=== PATIENT | female | born 1990 | race Caucasian/White ===

== ENCOUNTER 2016-08-30 21:40 | Emergency (ER) | payer MEDICAID ==
[~2016-08-30] VITALS: Ht 157.5 cm; Wt 63.3 kg
[~2016-08-30 21:40] MED LIST: ABCC1C PO; PREN1TAB49
[2016-08-30 21:57] VITALS: Ht 157.5 cm; Wt 63.3 kg
[2016-08-31] MEDS ORDERED: ONDANSETRON (ODT) 4 MG TAB ODT STA (02:09)
--- NOTE | 2016-08-31 02:58 | RADRPT ---
PROCEDURE: CT head, without contrast. CLINICAL INDICATION: Headache and weakness. TECHNIQUE: Noncontrast CT examination of the head, with axial, sagittal and coronal reformatted im ages. Automated dose exposure control was employed. CTDI: 38.54 mGy and DLP: 634.23 mGy-cm. COMPARISON: None. FINDINGS: No acute hemorrhage. Subarachnoid spaces are substantially preserved and symmetric. Ventricles ar e unremarkable. No mass effect. De La Cruz-white matter distinction is preserved without evident decreased attenuation t o suggest acute or recent infarct. Sinuses and osseous structures are unremarkable. IMPRESSION: No acute process in the head. RPTAT: UU Physician Michael Date Time Electronically viewed and signed by Physician Michael on 08/31/2016 02:57 RS/
[2016-08-31 03:08] LABS: ADD SCAN DIFF NO
[2016-08-31 03:34] LABS: BASOPHIL # 0.1 10^3/ul (0.0-0.1); BASOPHILS % 0.8 % (0.0-2.0); EOSINOPHILS # 1.3 10^3/ul (0.0-0.5); EOSINOPHILS % 11.9 % (0.0-7.0); HEMATOCRIT 38.5 % (37.0-47.0); HEMOGLOBIN 13.2 g/dl (12.0-16.0); LYMPHOCYTES # 3.5 10^3/ul (0.8-2.9); MEAN CORPUSCULAR HGB CONC 34.3 g/dl (32.0-37.0); MEAN CORPUSCULAR VOLUME 90.4 fl (82.0-101.0); MEAN PLATELET VOLUME 9.6 fl (7.4-10.4); MONOCYTE # 0.6 10^3/ul (0.3-0.9); MONOCYTES % 5.5 % (0.0-11.0); NEUTROPHIL # 5.2 10^3/ul (1.6-7.5); NEUTROPHILS % 48.4 % (39.0-77.0); PLATELET COUNT 322 10^3/UL (140-415); RED BLOOD COUNT 4.26 10^6/ul (4.20-5.40); RED CELL DISTRIBUTION WIDTH 11.9 % (11.5-14.5); WHITE BLOOD COUNT 10.7 10^3/ul (4.8-10.8)
[2016-08-31 03:37] LABS: ALBUMIN 4.2 g/dl (3.3-4.9)
[2016-08-31 03:38] LABS: POTASSIUM 4.5 mmol/L (3.5-5.1)
[2016-08-31 03:40] LABS: BILIRUBIN,INDIRECT 0.1 mg/dl (0-1.1); BILIRUBIN,TOTAL 0.1 mg/dl (0.2-1.3); CREATININE 0.68 mg/dl (0.44-1.00)
[2016-08-31 03:41] LABS: ALBUMIN/GLOBULIN RATIO 1.07; CALCIUM 9.7 mg/dl (8.4-10.2); TOTAL PROTEIN 8.1 g/dl (6.1-8.1)
[2016-08-31] MEDS ORDERED: ACET500C5 PO (04:07)
[2016-08-31 04:18] VITALS: BP 121/83; PULSE 81; RESP 16
--- NOTE | 2016-08-31 20:42 | ERD ---
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 She complains of headache, dizziness, numbness to her left side of face and weakness. She states that this has been going on for 2 weeks. She denies trauma or triggering factor. She denies fever or chills. She denies bowel or bladder incontinence. She denies difficulty walking, speaking. She denies blurry vision. She also states a pressure sensation on the left side of her head. She denies abdominal pain, nausea, vomiting, diarrhea, constipation. She denies chest pain, shortness of breath or difficulty breathing. She has no other complaints. ROS All systems reviewed and are negative except as per history of present illness. Medications Home Meds Active Scripts Acetaminophen* (Tylophen*) 500 Mg Capsule, 1 CAP PO Q6H Y for PAIN AND OR ELEVATED TEMP, #20 CAP Prov:ALEXIA QUINTERO PA-C 08/31/16 Bnvmxqkrstkxh-Zkwivgqggs-Kwkxoopm-Codeine* (Fioricet w/Codeine*) [id number] -30MG Cap, 1 CAP PO Q4H Y for PAIN LEVEL 1-5, #20 CAP Prov:ZOE FIGUEROA PA-C 04/12/15 Reported Medications Vits W-Ca,Fe,Fa(<1MG) () 1 Tab Tablet 07/01/11 [None] No Conflict Check 02/01/10 Allergies Allergies: Coded Allergies: No Known Drug Allergy (Verified Allergy, Unknown, 02/01/10) PMhx/Soc History of Surgery: Yes (CHOLECYSTECTOMY) Anesthesia Reaction: No Hx Neurological Disorder: No Hx Respiratory Disorders: No Hx Cardiac Disorders: No Hx Psychiatric Problems: No Hx Miscellaneous Medical Probl: No Hx Alcohol Use: No Hx Substance Use: No Hx Tobacco Use: No Smoking Status: Never smoker FmHx Family History: No coronary disease, No diabetes, No other Physical Exam Vitals Vital Signs Date Time Temp Pulse Resp B/P Pulse Ox O2 Delivery O2 Flow Rate FiO2 08/31/16 04:18 81 16 121/83 98 Room Air 08/30/16 21:57 98.5 82 20 124/64 100 Physical Exam GENERAL: Well-developed, well-nourished female. Appears in no acute distress. HEAD: Normocephalic, atraumatic. EYES: Pupils are equally reactive bilaterally. EOMs grossly intact. No conjunctival erythema. ENT: Moist mucous membranes. No uvula deviation. No kissing tonsils. No exudates. NECK: Supple. No lymphadenopathy or thyromegaly. No meningismus. negative kernig. negative brudinski. LUNG: Clear to auscultation bilaterally. No rhonchi, wheezing, rales or coarse breath sounds. HEART: Regular rate and rhythm. No murmurs, rubs or gallops. ABDOMEN: No scars, ecchymosis or rashes noted. Soft, nontender, and nondistended. Positive bowel sounds in all four quadrants. No rebound tenderness , no guarding. (-) McBurneys point tenderness. No CVA tenderness. BACK: No midline tenderness. Extremities: Equal pulses bilaterally. No peripheral clubbing, cyanosis or edema. No unilateral leg swelling. NEUROLOGIC: Alert and oriented. Moving all four extremities. 5/5 strength in all extremities. Normal speech. Steady gait. Cranial nerves II through XII intact. Reflexes intact. SKIN: Normal color. Warm and dry. No rashes or lesions. Capillary refill < 2 seconds Result Diagram: 08/31/165 08/31/16 0255 Results 24 hrs Laboratory Tests Test 08/31/16 02:55 Alanine Aminotransferase (ALT/SGPT) 24IU/L Albumin 4.2g/dl Albumin/Globulin Ratio 1.07 Alkaline Phosphatase 76IU/L Anion Gap 18 Aspartate Amino Transf (AST/SGOT) 23IU/L Basophils # 0.110^3/ul Basophils % 0.8% Blood Urea Nitrogen 23mg/dl Calcium Level 9.7mg/dl Carbon Dioxide Level 27mmol/L Chloride Level 103mmol/L Creatinine 0.68mg/dl Direct Bilirubin 0.00mg/dl Eosinophils # 1.310^3/ul Eosinophils % 11.9% Globulin 3.90g/dl Glucose Level 100mg/dl Hematocrit 38.5% Hemoglobin 13.2g/dl Indirect Bilirubin 0.1mg/dl Lipase 233U/L Lymphocytes # 3.510^3/ul Lymphocytes % 33.0% Mean Corpuscular Hemoglobin 31.0pg Mean Corpuscular Hemoglobin Concent 34.3g/dl Mean Corpuscular Volume 90.4fl Mean Platelet Volume 9.6fl Monocytes # 0.610^3/ul Monocytes % 5.5% Neutrophils # 5.210^3/ul Neutrophils % 48.4% Nucleated Red Blood Cells # 0.010^3/ul Nucleated Red Blood Cells % 0.0/100WBC Platelet Count 18935^3/UL Potassium Level 4.5mmol/L Red Blood Count 4.2610^6/ul Red Cell Distribution Width 11.9% Sodium Level 143mmol/L Total Bilirubin 0.1mg/dl Total Protein 8.1g/dl White Blood Count 10.710^3/ul Current Medications Medications (Trade) Dose Ordered Sig/Urszula Route PRN Reason Start Time Stop Time Status Last Admin Dose Admin Ondansetron HCl (Zofran Odt) 4 mg ONCE STAT ODT 08/31/16 02:09 08/31/16 02:11 DC 08/31/16 02:40 Procedures/MDM ER COURSE: I kept the patient and/or family informed of laboratory and diagnostic imaging results throughout the emergency room course. EKG, MONITORS, & DIAGNOSTIC IMAGING: [place] [address] Radiology Main Line: [phone] DIAGNOSTIC IMAGING REPORT Patient: TANIKA DIAZ : 1990 Age: 26 Sex: F MR #: [id number] DOS: 08/31/16 0209 Ordering MD: ALEXIA QUINTERO PA-C Location: [facility] Room/Bed: PROCEDURE: CT head, without contrast. CLINICAL INDICATION: Headache and weakness. TECHNIQUE: Noncontrast CT examination of the head, with axial, sagittal and coronal reformatted images. Automated dose exposure control was employed. CTDI: 38.54 mGy and DLP: 634.23 mGy-cm. COMPARISON: None. FINDINGS: No acute hemorrhage. Subarachnoid spaces are substantially preserved and symmetric. Ventricles are unremarkable. No mass effect. De La Cruz-white matter distinction is preserved without evident decreased attenuation to suggest acute or recent infarct. Sinuses and osseous structures are unremarkable. IMPRESSION: No acute process in the head. RPTAT: UU Physician Michael Date Time Electronically viewed and signed by Physician Michael on 08/31/2016 02:57 RS/ CC: ALEXIA QUINTERO PA-C LAB INTERPRETATION: CBC showed no evidence of systemic infection or severe anemia. CMP showed no evidence of electrolyte abnormalities, severe acidosis, alkalosis, renal failure , or liver disease. Lipase showed no evidence of acute pancreatitis. Urine test was negative. MEDICAL DECISION MAKING: This is a 26 year old female who presents with multiple complaints. Vital signs were reviewed. Patient is afebrile. Patient is not hypoxic. Patient is not toxic or ill-appearing. Patient has headache and numbness of the face of unknown etiology. Her CT scan as read by radiologist was unremarkable. Her blood work was within normal limits. Low suspicion for intracranial hemorrhage , meningitis, intracranial mass, concussion, temporal arteritis, stroke, elevated intracranial pressure, seizure. Low suspicion for cauda equine syndrome, spinal epidural hematoma, spinal epidural abscess, osteomyelitis, fracture, aortic dissection, AAA, pyelonephritis, nephrolithiasis, septic stone, obstructed stone. DISCHARGE: At this time, patient is stable for discharge and outpatient management with no new complaints during the ER course. Patient was sent home with Tylenol and copy of reports was given to patient to follow-up with her primary care.. Patient will be discharged home with instructions to recheck for new or worsening symptoms such as fever, nausea, weakness, LOC and to follow up with primary care in the next 1-2 days. Patient was advised to return to the ER for any new or worsening symptoms. Plan was discussed and patient and/or family understands and agrees. Home instructions were given. Departure Diagnosis: Primary Impression: Headache Headache type: unspecified Headache chronicity pattern: unspecified pattern Intractability: not intractable Qualified Code: R51 - Nonintractable headache, unspecified chronicity pattern, unspecified headache type Condition: Stable Patient Instructions: Self-Care for Headaches Referrals: [facility] Usted se carlson hecho un examen mdico de control que le indica que no est en shelia condicin que requiera tratamiento urgente en el Departamento de Emergencia. Un estudio ms profundo y el tratamiento de melton condicin pueden esperar sin ningn riesgo hasta que usted sea atendida/o en el consultorio de melton mdico o shelia cl kevin. Es responsabilidad suya arreglar shelia tana para el seguimiento del theresa. MANEJO DE CONDICIONES NO URGENTES EN EL FUTURO 1) Si usted tiene un mdico de atencin primaria: Usted debera llamar a melton mdico de atencin primaria antes de venir al departamento de emergencia. Despus de las horas de consultorio, melton doctor o melton asociado/a est disponible por telfono. El mdico o enfermero de edmond en el servicio telefnico puede asesorarle por kathirn medio para atender el problema, o theresa contrario se puede programar shelia tana. 2) Si usted no tiene un mdico de atencin primaria: Llame al mdico o clnica de referencia que aparece abajo isaias las horas de consultorio para hacer shelia tana para que le vean. CLINICAS: [facility] [phone] [address] [facility] [phone] [address] [facility] [phone] [address] [facility] [place] [id number] [phone] [facility] [place] [id number] [phone] [facility]. [phone] [address] Additional Instructions: Llame al doctor MAANA y cayetano shelia TANA PARA DENTRO DE 1-2 BRINK.Dgale a la secretaria que nosotros le instruimos hacer esta tana.Avise o llame si melton condicin se empeora antes de la tana. Regresa aqui si peor o no mejor. ALEXIA QUINTERO PA-C Aug 31, 2016 20:41
== END 2016-08-31 04:19 | disposition home or self-care (01) ==
LOC: FTE 21:40
DX: R51 Headache (principal)
CPT/HCPCS: 70450; 80053; 83690; 85025; Z7502; Z7610

== ENCOUNTER 2016-11-28 19:50 | Emergency (ER) | payer MEDICAID ==
[~2016-11-28] VITALS: Ht 160 cm; Wt 63.0 kg
[~2016-11-28 19:50] MED LIST changes: +ACET500C5 PO
[2016-11-28 19:54] VITALS: Ht 160 cm; Wt 63.0 kg
[2016-11-28 20:17] VITALS: PULSE 95
[2016-11-28] MEDS ORDERED: AZIT250T94 PO (20:19)
[2016-11-28] MEDS ORDERED: IBUP-1542 PO (20:19)
[2016-11-28] MEDS ORDERED: CETI10CA PO (20:19)
[2016-11-28] MEDS ORDERED: ALBU8.5H3 INH (20:19)
[2016-11-28] MEDS ORDERED: GUAI120S26 PO (20:19)
--- NOTE | 2016-11-28 20:42 | ERD ---
ER Documentation Chief Complaint Date/Time DATE: 11/28/16 TIME: 20:40 Chief Complaint BODY ACHES, FEVER, COUGH SINCE YESTERDAY MORNING. HPI 26-year-old female presents here in emergency department for complaints of cough , fever, body, sore throat started yesterday. Patient has been having dry cough , does not any phlegm or blood. Patient is on and off wheezing at times. Patient does not have any sick contacts. Patient did not take any medications of the symptoms. ROS All systems reviewed and are negative except as per history of present illness. Medications Home Meds Active Scripts Azithromycin* (Zithromax*) 250 Mg Tablet, 250 MG PO .ZPACK DIRECTED, #6 TAB TAKE 500 MG (2 TABS) THE FIRST DAY THEN 250 MG (1 TAB) DAYS 2-5 Prov:AMA DIAZ NP 11/28/16 Albuterol Sulfate* (Proair HFA*) 8.5 Gm Hfa.aer.ad, 2 PUFF INH Q4H Y for WHEEZING AND SOB, #1 INHALER Prov:AMA DIAZ NP 11/28/16 Ibuprofen* (Motrin*) 600 Mg Tab, 600 MG PO Q6H Y for PAIN AND OR ELEVATED TEMP, #30 TAB Prov:AMA DIAZ NP 11/28/16 Cetirizine Hcl* (Zyrtec*) 10 Mg Capsule, 10 MG PO DAILY, #30 TAB.CHEW Prov:AMA DIAZ NP 11/28/16 Onmstzgmlpw-H-Rkwgigbksi Hb* (Guaifenesin* DM Syrup) 120 Ml Syrup, 10 ML PO Q4H Y for COUGH, #120 ML Prov:AMA DIAZ NP 11/28/16 Acetaminophen* (Tylophen*) 500 Mg Capsule, 1 CAP PO Q6H Y for PAIN AND OR ELEVATED TEMP, #20 CAP Prov:ALEXIA QUINTERO PA-C 08/31/16 Oqkefwkojyxue-Rwxwbfyuui-Thqrkifs-Codeine* (Fioricet w/Codeine*) [id number] -30MG Cap, 1 CAP PO Q4H Y for PAIN LEVEL 1-5, #20 CAP Prov:ZOE FIGUEROA PA-C 04/12/15 Reported Medications Vits W-Ca,Fe,Fa(<1MG) () 1 Tab Tablet 07/01/11 [None] No Conflict Check 02/01/10 Allergies Allergies: Coded Allergies: No Known Drug Allergy (Verified Allergy, Unknown, 11/28/16) PMhx/Soc History of Surgery: Yes (CHOLECYSTECTOMY) Anesthesia Reaction: No Hx Neurological Disorder: No Hx Respiratory Disorders: No Hx Cardiac Disorders: No Hx Psychiatric Problems: No Hx Miscellaneous Medical Probl: No Hx Alcohol Use: No Hx Substance Use: No Hx Tobacco Use: No FmHx Family History: No coronary disease, No diabetes, No other Physical Exam Vitals Vital Signs Date Time Temp Pulse Resp B/P Pulse Ox O2 Delivery O2 Flow Rate FiO2 11/28/16 20:17 95 11/28/16 19:54 99.7 108 16 114/70 98 Physical Exam GENERAL: The patient is well developed and appropriate for usual state of health, in no apparent distress. HEENT: Atraumatic. Ears: Normal tympanic membrane, no erythema or bulging. No ear canal swelling. No ear discharge. Nose: Erythematous nasal turbinates with clear nasal discharge. Throat: oropharynx erythematous with postnasal drip. No tonsillar swelling or tonsillar exudates. No lymphadenopathy. CHEST: Clear to auscultation bilaterally. There are no rales, wheezes or rhonchi. HEART: Regular rate and rhythm. No murmurs, clicks, rubs or gallops. No S3 or S4. ABDOMEN: Soft, nontender and nondistended. Good bowel sounds. No rebound or guarding. No gross peritonitis. No gross organomegaly or masses. No Aguirre sign or McBurney point tenderness. BACK: No midline or flank tenderness. EXTREMITIES: Equal pulses bilaterally. There is no peripheral clubbing, cyanosis or edema. No focal swelling or erythema. Full range of motion. Grossly neurovascularly intact. NEURO: Alert and oriented. Cranial nerves 2-12 intact. Motor strength in all 4 extremities with 5/5 strength. Sensation grossly intact. Normal speech and gait. SKIN: There is no apparent rash or petechia. The skin is warm and dry. HEMATOLOGIC AND LYMPHATIC: There is no evidence of excessive bruising or lymphedema. No gross cervical, axillary, or inguinal lymphadenopathy. Procedures/MDM Medical Decision Making: Patient symptoms are most likely consistent with acute bronchitis, which possibly atypical infection. There is low suspicion for Pneumonia at this time since patients lungs sounds are clear, patient O2 saturation is normal and patient doesnt show any respiratory distress. Radiology exam is not indicated at this time. There is low suspicion for other cardiopulmonary emergencies at this time such as CHF, Pulmonary Embolism, Pneumothorax, or any other cardiopulmonary emergencies at this time. There is low suspicion for sepsis. Patient appears well and is hemodynamically stable. Patient's fever is controlled. Disposition: Home. Condition: Stable Prescriptions: Azithromycin, albuterol, Zyrtec, guaifenesin DM ibuprofen Instructions: Patient is advised to take medications as prescribed. Patient is advised to rest. Patient advised to increase fluid intake, do humidifier at home and if possible, do salt water gargles. Patient is advised that if symptoms are worse, shortness of breath, uncontrolled fever, stridor, vomiting, worst signs and symptoms to return to emergency department immediately. Otherwise, patient is advised to follow up with primary doctor in 5-7 days. Departure Diagnosis: Primary Impression: Acute bronchitis Bronchitis organism: unspecified organism Qualified Code: J20.9 - Acute bronchitis, unspecified organism Condition: Stable Patient Instructions: Bronchitis, Antiobiotic Treatment (Adult) AMA DIAZ NP November 28, 2016 20:42
== END 2016-11-28 20:22 | disposition home or self-care (01) ==
LOC: E/R 19:50
DX: J20.9 Acute bronchitis, unspecified (principal)
CPT/HCPCS: 99284

== ENCOUNTER → 2018-10-08 | Emergency (ER) | payer MEDICAID ==
[~2018-10-08] VITALS: Ht 157.5 cm; Wt 65.0 kg
[~2018-10-08] MED LIST changes: +ALBU8.5H8 INH; +AZIT250T PO; +BUTA1CAP38 PO; +CETI10CA PO; +GUAI120S26 PO; +IBUP-1542 PO; +KETOROLAC 30 MG INJ IM STA; +MAG-19 PO
[2018-10-08 19:56] VITALS: Ht 157.5 cm; Wt 65.0 kg
--- NOTE | 2018-10-08 22:03 | ERD ---
ER Documentation Chief Complaint Chief Complaint HEADACHE X2DAYS, NO N/V, NO DIZZINESS, NO FEVER HPI 28-year-old female presents for headache times 2 days. She states that the headaches in the posterior side of her head, rated 10 out of 10, described as sharp, nonradiating. She tried Tylenol at home without relief. She also took Advil 400 mg With only mild relief. Denies nausea vomiting. She denies fevers or chills. Denies chest pain or shortness of breath. No significant past medical history. ROS All systems reviewed and are negative except as per history of present illness. Medications Home Meds Active Scripts Upmkksgevg-Cyzlhvoipcriw-Pkrennzp* (Fioricet*) 50-300-40 Mg Capsule, 1 CAP PO Q4H PRN for HEADACHE, #30 CAP Prov:TL CHAMBERS 10/08/18 Ibuprofen* (Motrin*) 600 Mg Tab, 600 MG PO Q6H PRN for PAIN AND OR ELEVATED TEMP, #30 TAB Prov:TL CHAMBERS DO 10/08/18 Magaldrate/Simethicone* (Mylanta*) 355 Ml Susp, 30 ML PO QID PRN for GASTROINTESTINAL UPSET, #1 BOTTLE Prov:TL CHAMBERS 08/09/18 Azithromycin* (Zithromax*) 250 Mg Tablet, 250 MG PO .ZPACK DIRECTED, #6 TAB TAKE 500 MG (2 TABS) THE FIRST DAY THEN 250 MG (1 TAB) DAYS 2-5 Prov:AMA DIAZ NP 11/28/16 Albuterol Sulfate* (Proair HFA*) 8.5 Gm Hfa.aer.ad, 2 PUFF INH Q4H PRN for WHEEZING AND SOB, #1 INHALER Prov:AMA DIAZ NP 11/28/16 Ibuprofen* (Motrin*) 600 Mg Tab, 600 MG PO Q6H PRN for PAIN AND OR ELEVATED TEMP, #30 TAB Prov:AMA DIAZ NP 11/28/16 Cetirizine Hcl* (Zyrtec*) 10 Mg Capsule, 10 MG PO DAILY, #30 TAB.CHEW Prov:AMA DIAZ NP 11/28/16 Mavqevpraun-K-Nffibqgibu Hb* (Guaifenesin* DM Syrup) 120 Ml Syrup, 10 ML PO Q4H PRN for COUGH, #120 ML Prov:AMA DIAZ NP 11/28/16 Acetaminophen* (Tylophen*) 500 Mg Capsule, 1 CAP PO Q6H PRN for PAIN AND OR ELEVATED TEMP, #20 CAP Prov:ALEXIA QUINTERO PA-C 08/31/16 Mitrpszfknmqe-Xwahigrerq-Cztqdnfe-Codeine* (Fioricet w/Codeine*) [id number] Cap, 1 CAP PO Q4H PRN for PAIN LEVEL 1-5, #20 CAP Prov:ZOE FIGUEROA PA-C 04/12/15 Reported Medications Vits W-Ca,Fe,Fa(<1MG) () 1 Tab Tablet 07/01/11 [None] No Conflict Check 02/01/10 Allergies Allergies: Coded Allergies: No Known Drug Allergy (Verified Allergy, Unknown, 11/28/16) PMhx/Soc History of Surgery: Yes (CHOLECYSTECTOMY) Anesthesia Reaction: No Hx Neurological Disorder: No Hx Respiratory Disorders: No Hx Cardiac Disorders: No Hx Psychiatric Problems: No Hx Miscellaneous Medical Probl: No Hx Alcohol Use: No Hx Substance Use: No Hx Tobacco Use: No Smoking Status: Never smoker Physical Exam Vitals Vital Signs Date Temp Pulse Resp B/P (MAP) Pulse Ox O2 O2 Flow FiO2 Time Delivery Rate 10/08/18 97.0 80 19 120/77 99 19:56 (91) Physical Exam Const: No acute distress Head: Atraumatic, no temporal area tenderness to palpation Eyes: Normal Conjunctiva, pupils equal, round, reactive to light bilaterally ENT: Normal External Ears, bilateral tympanic membrane intact without erythema or bulging noted, Nose and Mouth examination normal. No tonsillar swelling or exudate noted Neck: Full range of motion. No meningismus, no bruits noted Resp: Clear to auscultation bilaterally Cardio: Regular rate and rhythm, no murmurs, bilateral radial and dorsalis pedis pulses intact Skin: No petechiae or rashes Ext: No cyanosis, or edema, 5 out of 5 muscular bilateral upper and lower extremities Neur: Awake and alert, bilateral upper and lower extremity sensation intact Psych: Normal Mood and Affect Results 24 hrs Laboratory Tests Test 10/08/18 21:28 POC Beta HCG, Qualitative NEGATIVE Current Medications Medications Dose Sig/Urszula Start Time Status Last (Trade) Ordered Route PRN Stop Time Admin Dose Reason Admin Ketorolac 30 mg ONCE STAT 10/08/18 DC 10/08/18 Tromethamine IM 21:16 10/08/18 21:33 (Toradol) 21:17 Procedures/MDM Medical Decision Making: Differential diagnosis includes but not limited to primary headache, subarachnoid hemorrhage, meningitis, temporal arteritis, glaucoma, hypertension, cerebral ischemia, carotid or vertebral arterial dissection, brain tumor. Patient appeared well on physical examination, nontoxic appearing. No history of fever. There is low suspicion for meningitis. Given no temporal area tenderness to palpation, low suspicion for temporal arteritis. Patient has no vision changes and pupils are reactive bilaterally, low suspicion for glaucoma. There is also no focal neurologic deficits to suggest a brain tumor. Patient has normal sensation and muscle strength, low suspicion for cerebral ischemia. Given headache is similar to prior headaches, patient possibly has a primary headache. In the ER patient given Toradol Symptoms improved with treatment. Patient given prescription for supportive medication(s). Patient advised to follow up with PCP in 1-2 days. Patient advised to return to ED for new or worsening symptoms. Patient stable on discharge from the ED. Disclaimer: Inadvertent spelling and grammatical errors are likely due to EHR/dictation software use and do not reflect on the overall quality of patient care. Also, please note that the electronic time recorded on this note does not necessarily reflect the actual time of the patient encounter. Departure Diagnosis: Primary Impression: Headache Headache type: unspecified Headache chronicity pattern: unspecified pattern Intractability: not intractable Qualified Codes: R51 - Headache Condition: Fair Patient Instructions: Self-Care for Headaches Referrals: [facility] YOU HAVE RECEIVED A MEDICAL SCREENING EXAM AND THE RESULTS INDICATE THAT YOU DO NOT HAVE A CONDITION THAT REQUIRES URGENT TREATMENT IN THE EMERGENCY DEPARTMENT. FURTHER EVALUATION AND TREATMENT OF YOUR CONDITION CAN WAIT UNTIL YOU ARE SEEN IN YOUR DOCTORS OFFICE WITHIN THE NEXT 1-2 DAYS. IT IS YOUR RESPONSIBILITY TO MAKE AN APPOINTMENT FOR FOLOW-UP CARE. IF YOU HAVE A PRIMARY DOCTOR --you should call your primary doctor and schedule an appointment IF YOU DO NOT HAVE A PRIMARY DOCTOR YOU CAN CALL OUR PHYSICIAN REFERRAL HOTLINE AT IF YOU CAN NOT AFFORD TO SEE A PHYSICIAN YOU CAN CHOSE FROM THE FOLLOWING COMM [facility] [address] [facility] [address] [facility]. [facility] [address] [facility] [address] [facility] [phone] [facility]. [facility] [address] Additional Instructions: Call your primary care doctor TOMORROW for an appointment during the next 1-2 days.See the doctor sooner or return here if your condition worsens before your appointment time. TL CHAMBERS DO Oct 08, 2018 22:03
[2018-10-08 22:20] VITALS: BP 127/78; PULSE 78; RESP 18
== END | disposition home or self-care (01) ==
LOC: FTE 19:51
DX: R51 Headache (principal)
CPT/HCPCS: 81025; 96372; J1885; Z7502